=== PATIENT | male | born 1985 | race Caucasian/White ===

== ENCOUNTER 2018-05-28 20:12 | Emergency (ER) | payer OTHER ==
[~2018-05-28 20:12] MED LIST: AMOX500 PO; HYDACE5 PO; NAPR500 PO; PRED10 PO
[2018-05-29] MEDS ORDERED: CEPH500 PO (00:53)
[2018-05-29] MEDS ORDERED: Bactrim Ds Tab1 EACH PO (00:53)
== END 2018-05-28 21:05 | disposition left against medical advice (07) ==
LOC: ER 20:12
DX: Z53.21 Procedure and treatment not carried out due to patient leaving prior to being seen by health care provider (principal)

== ENCOUNTER 2018-05-28 23:51 | Emergency (ER) | payer OTHER ==
[~2018-05-28] VITALS: Ht 177.8 cm; Wt 72.6 kg
[2018-05-29] MEDS ORDERED: Bactrim Ds Tab1 EACH PO (00:53)
[2018-05-29] MEDS ORDERED: CEPH500 PO (00:53)
== END 2018-05-29 02:04 | disposition home or self-care (01) ==
LOC: ER 23:51
DX: L03.012 Cellulitis of left finger (principal); F17.200 Nicotine dependence, unspecified, uncomplicated
CPT/HCPCS: 11740; 99283-25

== ENCOUNTER 2018-06-03 15:08 | Emergency (ER) | payer OTHER ==
[~2018-06-03] VITALS: Ht 177.8 cm; Wt 74.8 kg
[~2018-06-03 15:08] MED LIST changes: +Bactrim Ds Tab1 EACH PO; +CEPH500 PO
[2018-06-03] MEDS ORDERED: Bactrim Ds Tab1 EACH PO (17:06)
[2018-06-03] MEDS ORDERED: Augmentin 875-1 EACH PO (17:06)
== END 2018-06-03 17:21 | disposition home or self-care (01) ==
LOC: ER 15:08
DX: L03.012 Cellulitis of left finger (principal); S81.852D Open bite, left lower leg, subsequent encounter; W54.0XXD Bitten by dog, subsequent encounter; Z79.899 Other long term (current) drug therapy; F17.210 Nicotine dependence, cigarettes, uncomplicated
CPT/HCPCS: 99283

== ENCOUNTER 2018-08-07 00:17 | Emergency (ER) | payer OTHER ==
[~2018-08-07] VITALS: Ht 177.8 cm; Wt 74.8 kg
[~2018-08-07 00:17] MED LIST changes: +Augmentin 875-1 EACH PO
[2018-08-07] MEDS ORDERED: Augmentin 875-1 EACH PO (04:07)
== END 2018-08-07 04:14 | disposition home or self-care (01) ==
LOC: ER 00:17
DX: S01.551A Open bite of lip, initial encounter (principal); S61.052A Open bite of left thumb without damage to nail, initial encounter; F17.200 Nicotine dependence, unspecified, uncomplicated; W54.0XXA Bitten by dog, initial encounter
CPT/HCPCS: 90471; 90714; 99283-25

== ENCOUNTER 2018-08-31 09:24 | Emergency (ER) | payer OTHER ==
[~2018-08-31] VITALS: Ht 172.7 cm; Wt 68.0 kg
== END 2018-08-31 09:45 ==
LOC: ER 09:24
DX: Z02.89 Encounter for other administrative examinations (principal); F17.200 Nicotine dependence, unspecified, uncomplicated
CPT/HCPCS: 99283